=== PATIENT | male | born 1995 | race African-American/Black ===

== ENCOUNTER 2024-09-20 19:35 | Emergency (ER) | payer MEDICAID ==
[~2024-09-20] VITALS: Ht 185.4 cm; Wt 86.0 kg
[2024-09-20 19:52] VITALS: BP 131/81; TEMP 36.7; O2SAT 98
[2024-09-20 19:54] VITALS: PULSE 75; RESP 16; O2SAT 100
[2024-09-20] MEDS ORDERED: CELE100C MT (20:31)
== END 2024-09-20 20:51 | disposition home or self-care (01) ==
LOC: ER 19:35
DX: S46.911A Strain of unspecified muscle, fascia and tendon at shoulder and upper arm level, right arm, initial encounter (principal); X58.XXXA Exposure to other specified factors, initial encounter; Y93.89 Activity, other specified; Y92.89 Other specified places as the place of occurrence of the external cause; Y99.8 Other external cause status
CPT/HCPCS: 99283